=== PATIENT | female | born 1945 | race Caucasian/White ===

== ENCOUNTER 2023-01-04 10:55 | Inpatient (IN) | payer MEDICARE ==
[~2023-01-04] VITALS: Ht 152.4 cm; Wt 45.4 kg
[2023-01-04] MEDS ORDERED: IBUP-2314 PO (11:08)
[2023-01-04] MEDS ORDERED: DONE5TAB34 PO (11:08)
[2023-01-04] MEDS ORDERED: LORA0.5T48 PO (11:08)
[2023-01-04 11:38] LABS: BASOPHILS # (AUTO) 0.1 K/UL (0.0-0.2); BASOPHILS % (AUTO) 0.5 % (0.0-2.0); EOSINOPHILS # (AUTO) 0.1 K/uL (0.0-0.7); EOSINOPHILS % (AUTO) 0.8 % (0.0-7.0); HEMATOCRIT 38.3 % (31.2-41.9); HEMOGLOBIN 12.9 g/dL (10.9-14.3); LYMPHOCYTES # (AUTO) 0.3 K/uL (0.8-4.8); LYMPHOCYTES % (AUTO) 2.9 % (20.5-51.5); MEAN CORPUSCULAR HEMOGLOBIN 31.6 uug (24.7-32.8); MEAN CORPUSCULAR HGB CONC 34 g/dL (32.3-35.6); MONOCYTES % (AUTO) 9.6 % (0.0-11.0); NEUTROPHILS # (AUTO) 9.2 K/uL (1.8-8.9); NEUTROPHILS % (AUTO) 86.2 % (38.5-71.5); PLATELET COUNT (AUTO) 194 K/uL (179-408); RED BLOOD CELL COUNT(AUTO) 4.07 MIL/uL (3.63-4.92); RED CELL DISTRIBUTION WIDTH 14.3 % (12.3-17.7); WHITE BLOOD COUNT (AUTO) 10.7 K/uL (3.8-11.8)
[2023-01-04 11:46] LABS: CARBON DIOXIDE 27 mmol/L (21-32); CHLORIDE 102 mmol/L (98-107); CREATININE 0.9 mg/dL (0.6-1.3); GLUCOSE 113 mg/dL (74-106); POTASSIUM 4.1 mmol/L (3.5-5.1); SODIUM SERUM 139 mmol/L (136-145); UREA NITROGEN, BLOOD 14 mg/dL (7-18)
[2023-01-04 11:47] LABS: DIFFERENTIAL COMMENT 1
[2023-01-04 11:55] LABS: ALANINE AMINOTRANSFERASE 17 U/L (14-59); ALBUMIN 3.5 g/dL (3.4-5.0); ALKALINE PHOSPHATASE 97 U/L (50-136); ASPARTATE AMINOTRANSFERASE 12 U/L (15-37); BILIRUBIN,DIRECT 0.1 mg/dL (0.0-0.2); BILIRUBIN,TOTAL 0.4 mg/dL (0.2-1.0); TOTAL PROTEIN, SERUM 7.3 g/dL (6.4-8.2)
[2023-01-04 11:56] LABS: ACETAMINOPHEN < 2.0 ug/mL (10-30)
[2023-01-04 12:20] LABS: ETHANOL < 3 MG/DL (0-10)
[2023-01-04 12:46] LABS: AMMONIA < 10 umol/L (11-32)
[2023-01-04 13:14] LABS: *BILIRUBIN,URIN NEGATIVE (NEGATIVE); *BLOOD, URINE 1+ (NEGATIVE); *CLARITY,URINE CLEAR (CLEAR); *COLOR,URINE YELLOW (YELLOW); *KETONES,URINE TRACE (NEGATIVE); *PROTEIN,URINE TRACE (NEGATIVE); LEUKOCYTE ESTERASE ,URINE NEGATIVE (NEGATIVE); NITRITE, URINE NEGATIVE (NEGATIVE); UGLUCOSE NEGATIVE (NEGATIVE)
[2023-01-04 13:48] LABS: LYMPHOCYTES % (MANUAL) 4 % (20-40); MONOCYTES % (MANUAL) 9 % (2-10); NEUTROPHILS % (MANUAL) 87 % (42-75); PLATELET ESTIMATE ADEQUATE
[2023-01-04 13:49] LABS: ANISOCYTOSIS 1+
[2023-01-04 14:01] LABS: BACTERIA,URINE FEW /HPF (NONE SEEN); SQUAMOUS EPITHELIAL CELL,UR FEW /HPF (NONE SEEN); WBC,URINE 0-3 /HPF (0-3)
[2023-01-04 14:05] LABS: *AMPHETAMINE, URINE NEGATIVE (NEGATIVE); *BARBITURATE, URINE NEGATIVE (NEGATIVE); *BENZODIAZEPINE, URINE NEGATIVE (NEGATIVE); *CANNABINOID, URINE NEGATIVE (NEGATIVE); *COCCAINE, URINE NEGATIVE (NEGATIVE); *OPIATE, URINE NEGATIVE (NEGATIVE); *PHENCYCLIDINE SCREEN,URINE NEGATIVE (NEGATIVE); FENTANYL, URINE NEGATIVE (NEGATIVE)
[2023-01-04 17:58] VITALS: BP 121/47; TEMP 99.2; O2SAT 98
[2023-01-04] MEDS ORDERED: ONDANSETRON 4 MG/2 ML VIAL IV PRN (18:30)
[2023-01-04] MEDS ORDERED: TEMAZEPAM 15 MG CAPSULE PO PRN (18:30)
[2023-01-04] MEDS ORDERED: ACETAMINOPHEN 325 MG TABLET PO PRN (18:30)
[2023-01-04] MEDS ORDERED: PIPERACILLIN SODIUM/TAZOBACTAM 3.375 G in IV DEXTROSE 5% 50 ML IV SCH (18:30)
[2023-01-04 20:00] VITALS: BP 120/42; TEMP 98.6; O2SAT 96
[2023-01-04] MEDS: IV D5/ 0.9% NACL 1,000 ML IV PRN (20:09)
[2023-01-04] MEDS ORDERED: MEROPENEM 1GM/NS 100ML IVPB **ER PYXIS ONLY IV ONE (21:42)
[2023-01-04] MEDS ORDERED: PIPERACILLIN SODIUM/TAZOBACTAM 3.375 G in IV DEXTROSE 5% 100 ML IV SCH (22:00)
[2023-01-04] MEDS: MEROPENEM 1 G in IV NORMAL SALINE 100 ML IV ONE ×2 (22:01→22:13)
[2023-01-05] VITALS: BP 111/40; TEMP 97.6; O2SAT 99
[2023-01-05 04:00] VITALS: BP 125/45; TEMP 97.8; O2SAT 100
[2023-01-05] MEDS: PANTOPRAZOLE SODIUM 40 MG TABLET.DR PO SCH (06:17)
[2023-01-05 07:04] LABS: BASOPHILS # (AUTO) 0.1 K/UL (0.0-0.2); EOSINOPHILS % (AUTO) 0.1 % (0.0-7.0); HEMATOCRIT 36.3 % (31.2-41.9); HEMOGLOBIN 12.2 g/dL (10.9-14.3); LYMPHOCYTES # (AUTO) 0.9 K/uL (0.8-4.8); LYMPHOCYTES % (AUTO) 14.3 % (20.5-51.5); MEAN CORPUSCULAR HEMOGLOBIN 31.4 uug (24.7-32.8); MEAN CORPUSCULAR HGB CONC 34 g/dL (32.3-35.6); MEAN CORPUSCULAR VOLUME 93.4 fL (75.5-95.3); MONOCYTES # (AUTO) 1.1 K/uL (0.1-1.30); MONOCYTES % (AUTO) 17.3 % (0.0-11.0); NEUTROPHILS # (AUTO) 4.4 K/uL (1.8-8.9); NEUTROPHILS % (AUTO) 67.3 % (38.5-71.5); PLATELET COUNT (AUTO) 146 K/uL (179-408); RED BLOOD CELL COUNT(AUTO) 3.88 MIL/uL (3.63-4.92); RED CELL DISTRIBUTION WIDTH 14.1 % (12.3-17.7); WHITE BLOOD COUNT (AUTO) 6.5 K/uL (3.8-11.8)
[2023-01-05 07:53] LABS: DIFFERENTIAL COMMENT 1
[2023-01-05 08:08] LABS: ALBUMIN 2.9 g/dL (3.4-5.0); BILIRUBIN,TOTAL 0.3 mg/dL (0.2-1.0); CALCIUM 8.2 mg/dL (8.5-10.1); CREATININE 0.8 mg/dL (0.6-1.3); MAGNESIUM 1.9 mg/dL (1.8-2.4); PHOSPHOROUS 3.8 mg/dL (2.5-4.9); POTASSIUM 3.7 mmol/L (3.5-5.1); TOTAL PROTEIN, SERUM 6.1 g/dL (6.4-8.2)
[2023-01-05] MEDS ORDERED: MEROPENEM 1 G in IV NORMAL SALINE 100 ML IV SCH (09:00)
[2023-01-05] MEDS: DONEPEZIL 5 MG TABLET PO SCH (09:11)
[2023-01-05] MEDS: MEROPENEM 1 G in IV NORMAL SALINE 100 ML IV SCH ×2 (10:25→22:15)
[2023-01-05 11:18] VITALS: BP 118/37; TEMP 97.6; O2SAT 95
[2023-01-05 11:49] LABS: LYMPHOCYTES % (MANUAL) 15 % (20-40); MONOCYTES % (MANUAL) 17 % (2-10); NEUTROPHILS % (MANUAL) 68 % (42-75)
[2023-01-05 11:50] LABS: ANISOCYTOSIS 1+; PLATELET ESTIMATE ADEQUATE
[2023-01-05 15:43] VITALS: BP 142/64; TEMP 98.2; O2SAT 96
[2023-01-05] MEDS: IV D5/ 0.9% NACL 1,000 ML IV PRN (19:59)
[2023-01-05 20:00] VITALS: BP 138/56; TEMP 99; O2SAT 97
[2023-01-06 05:06] VITALS: BP 113/57; TEMP 98.8; O2SAT 99
[2023-01-06] MEDS: PANTOPRAZOLE SODIUM 40 MG TABLET.DR PO SCH (06:49)
[2023-01-06] MEDS: DOCUSATE SODIUM 100 MG CAPSULE PO SCH ×2 (08:38→20:35)
[2023-01-06] MEDS: DONEPEZIL 5 MG TABLET PO SCH (08:39)
[2023-01-06] MEDS ORDERED: BISACODYL 5 MG TABLET.DR PO ONE (09:00)
[2023-01-06] MEDS: MEROPENEM 1 G in IV NORMAL SALINE 100 ML IV SCH (10:28)
[2023-01-06 11:45] VITALS: BP 117/80; TEMP 93; O2SAT 97
[2023-01-06] MEDS: levoFLOXacin 500 MG TABLET PO SCH (15:23)
[2023-01-06 16:16] VITALS: TEMP 98.6; O2SAT 98
[2023-01-06 20:00] VITALS: BP 118/79; TEMP 98; O2SAT 97
[2023-01-07 04:00] VITALS: BP 125/84; TEMP 98.2; O2SAT 98
[2023-01-07] MEDS: PANTOPRAZOLE SODIUM 40 MG TABLET.DR PO SCH (06:33)
[2023-01-07 06:40] LABS: EOSINOPHILS % (AUTO) 0.9 % (0.0-7.0); HEMATOCRIT 37.2 % (31.2-41.9); HEMOGLOBIN 12.6 g/dL (10.9-14.3); LYMPHOCYTES # (AUTO) 1.1 K/uL (0.8-4.8); MEAN CORPUSCULAR HEMOGLOBIN 31.4 uug (24.7-32.8); MEAN CORPUSCULAR HGB CONC 34 g/dL (32.3-35.6); MEAN CORPUSCULAR VOLUME 92.3 fL (75.5-95.3); MONOCYTES # (AUTO) 0.6 K/uL (0.1-1.30); MONOCYTES % (AUTO) 21.3 % (0.0-11.0); NEUTROPHILS # (AUTO) 1.1 K/uL (1.8-8.9); NEUTROPHILS % (AUTO) 37.8 % (38.5-71.5); PLATELET COUNT (AUTO) 156 K/uL (179-408); RED BLOOD CELL COUNT(AUTO) 4.03 MIL/uL (3.63-4.92); RED CELL DISTRIBUTION WIDTH 14.1 % (12.3-17.7); WHITE BLOOD COUNT (AUTO) 2.8 K/uL (3.8-11.8)
[2023-01-07 06:53] LABS: DIFFERENTIAL COMMENT 1
[2023-01-07 06:55] LABS: LYMPHOCYTES % (MANUAL) 0 % (20-40); NEUTROPHILS % (MANUAL) 0 % (42-75)
[2023-01-07 06:56] LABS: CALCIUM 8.3 mg/dL (8.5-10.1); CARBON DIOXIDE 27 mmol/L (21-32); CHLORIDE 105 mmol/L (98-107); CREATININE 0.7 mg/dL (0.6-1.3); GLUCOSE 98 mg/dL (74-106); MAGNESIUM 1.7 mg/dL (1.8-2.4); PHOSPHOROUS 3.6 mg/dL (2.5-4.9); POTASSIUM 3.5 mmol/L (3.5-5.1); SODIUM SERUM 139 mmol/L (136-145); UREA NITROGEN, BLOOD 9 mg/dL (7-18)
[2023-01-07] MEDS: DONEPEZIL 5 MG TABLET PO SCH (08:22)
[2023-01-07] MEDS: DOCUSATE SODIUM 100 MG CAPSULE PO SCH ×2 (08:22→21:06)
[2023-01-07] MEDS: levoFLOXacin 500 MG TABLET PO SCH (08:22)
[2023-01-07] MEDS ORDERED: MAGNESIUM SULFATE/D5W 100 ML IV SCH (08:45)
[2023-01-07] MEDS ORDERED: POTASSIUM CHLORIDE 20 MEQ TAB.PRT.SR PO ONE (08:45)
[2023-01-07] MEDS ORDERED: MAGNESIUM OXIDE 400 MG TABLET PO ONE (10:15)
[2023-01-07 11:20] VITALS: BP 112/45; TEMP 98.3; O2SAT 97
[2023-01-07] MEDS ORDERED: MULT-969 PO (12:28)
[2023-01-07] MEDS ORDERED: LEVO500T90 PO (12:28)
[2023-01-07 16:04] VITALS: BP 127/48; TEMP 97.9; O2SAT 98
[2023-01-07 20:15] VITALS: BP 110/46; TEMP 98.1; O2SAT 96
[2023-01-07] MEDS: ENOXAPARIN SODIUM 40 MG/0.4 ML DISP.SYRIN SQ SCH (21:07)
[2023-01-08 04:16] VITALS: BP 113/41; TEMP 98.1; O2SAT 97
[2023-01-08] MEDS: PANTOPRAZOLE SODIUM 40 MG TABLET.DR PO SCH (07:06)
[2023-01-08 07:22] LABS: BASOPHILS % (AUTO) 0.8 % (0.0-2.0); EOSINOPHILS % (AUTO) 0.8 % (0.0-7.0); HEMATOCRIT 34.9 % (31.2-41.9); HEMOGLOBIN 11.9 g/dL (10.9-14.3); LYMPHOCYTES # (AUTO) 1.6 K/uL (0.8-4.8); LYMPHOCYTES % (AUTO) 45.3 % (20.5-51.5); MEAN CORPUSCULAR HEMOGLOBIN 31.3 uug (24.7-32.8); MEAN CORPUSCULAR HGB CONC 34 g/dL (32.3-35.6); MONOCYTES # (AUTO) 0.5 K/uL (0.1-1.30); MONOCYTES % (AUTO) 14.2 % (0.0-11.0); NEUTROPHILS # (AUTO) 1.4 K/uL (1.8-8.9); NEUTROPHILS % (AUTO) 38.9 % (38.5-71.5); PLATELET COUNT (AUTO) 159 K/uL (179-408); RED BLOOD CELL COUNT(AUTO) 3.79 MIL/uL (3.63-4.92); WHITE BLOOD COUNT (AUTO) 3.6 K/uL (3.8-11.8)
[2023-01-08 07:33] LABS: DIFFERENTIAL COMMENT 1
[2023-01-08 07:45] LABS: ALANINE AMINOTRANSFERASE 20 U/L (14-59); ALBUMIN 2.6 g/dL (3.4-5.0); ALKALINE PHOSPHATASE 65 U/L (50-136); ASPARTATE AMINOTRANSFERASE 21 U/L (15-37); BILIRUBIN,TOTAL 0.2 mg/dL (0.2-1.0); CALCIUM 8.1 mg/dL (8.5-10.1); CARBON DIOXIDE 26 mmol/L (21-32); CHLORIDE 104 mmol/L (98-107); CREATININE 0.8 mg/dL (0.6-1.3); FERRITIN 75 ng/mL (8-252); GLUCOSE 96 mg/dL (74-106); MAGNESIUM 1.9 mg/dL (1.8-2.4); PHOSPHOROUS 3.4 mg/dL (2.5-4.9); POTASSIUM 3.5 mmol/L (3.5-5.1); SODIUM SERUM 139 mmol/L (136-145); TOTAL PROTEIN, SERUM 5.6 g/dL (6.4-8.2); UREA NITROGEN, BLOOD 15 mg/dL (7-18)
[2023-01-08] MEDS: ASCORBIC ACID 500 MG TABLET PO SCH (09:22)
[2023-01-08] MEDS: levoFLOXacin 500 MG TABLET PO SCH (09:23)
[2023-01-08] MEDS: ZINC SULFATE 220 MG CAPSULE PO SCH (09:23)
[2023-01-08] MEDS: DONEPEZIL 5 MG TABLET PO SCH (09:23)
[2023-01-08] MEDS: DOCUSATE SODIUM 100 MG CAPSULE PO SCH ×2 (09:23→20:27)
[2023-01-08 11:33] VITALS: BP 127/46; TEMP 98.5; O2SAT 97
[2023-01-08 15:44] VITALS: BP 115/40; TEMP 98.2; O2SAT 95
[2023-01-08 20:00] VITALS: BP 126/45; TEMP 97.7; O2SAT 97
[2023-01-08] MEDS: NICOTINE 14 MG/24HR PATCH TD SCH (20:26)
[2023-01-08] MEDS: ENOXAPARIN SODIUM 40 MG/0.4 ML DISP.SYRIN SQ SCH (20:28)
[2023-01-09 04:00] VITALS: BP 110/42; TEMP 97.8; O2SAT 96
[2023-01-09] MEDS: PANTOPRAZOLE SODIUM 40 MG TABLET.DR PO SCH (06:04)
[2023-01-09 08:00] VITALS: BP 112/54; TEMP 98; O2SAT 96
[2023-01-09] MEDS: DOCUSATE SODIUM 100 MG CAPSULE PO SCH ×2 (08:27→20:40)
[2023-01-09] MEDS: DONEPEZIL 5 MG TABLET PO SCH (08:27)
[2023-01-09] MEDS: ZINC SULFATE 220 MG CAPSULE PO SCH (08:27)
[2023-01-09] MEDS: NICOTINE 14 MG/24HR PATCH TD SCH (08:27)
[2023-01-09] MEDS: ASCORBIC ACID 500 MG TABLET PO SCH (08:27)
[2023-01-09 12:00] VITALS: BP 135/49; TEMP 98.1; O2SAT 97
[2023-01-09 16:00] VITALS: BP 135/48; TEMP 98.7; O2SAT 97
[2023-01-09] MEDS: ENSURE ENLIVE (VAN) 240 ML LIQUID PO SCH (18:11)
[2023-01-09] MEDS: ENOXAPARIN SODIUM 40 MG/0.4 ML DISP.SYRIN SQ SCH (20:41)
[2023-01-10 05:43] VITALS: BP 148/68; TEMP 99; O2SAT 100
[2023-01-10] MEDS: PANTOPRAZOLE SODIUM 40 MG TABLET.DR PO SCH (06:04)
[2023-01-10 06:24] LABS: BASOPHILS % (AUTO) 1.1 % (0.0-2.0); EOSINOPHILS % (AUTO) 1.1 % (0.0-7.0); HEMATOCRIT 36.8 % (31.2-41.9); HEMOGLOBIN 12.2 g/dL (10.9-14.3); LYMPHOCYTES # (AUTO) 1.5 K/uL (0.8-4.8); LYMPHOCYTES % (AUTO) 38.8 % (20.5-51.5); MEAN CORPUSCULAR HEMOGLOBIN 30.9 uug (24.7-32.8); MEAN CORPUSCULAR HGB CONC 33 g/dL (32.3-35.6); MEAN CORPUSCULAR VOLUME 92.9 fL (75.5-95.3); MONOCYTES # (AUTO) 0.6 K/uL (0.1-1.30); NEUTROPHILS # (AUTO) 1.7 K/uL (1.8-8.9); PLATELET COUNT (AUTO) 156 K/uL (179-408); RED BLOOD CELL COUNT(AUTO) 3.96 MIL/uL (3.63-4.92)
[2023-01-10 06:39] LABS: DIFFERENTIAL COMMENT 1
[2023-01-10 06:45] LABS: LYMPHOCYTES % (MANUAL) 0 % (20-40); NEUTROPHILS % (MANUAL) 0 % (42-75)
[2023-01-10 06:55] LABS: CALCIUM 8.1 mg/dL (8.5-10.1); CARBON DIOXIDE 31 mmol/L (21-32); CHLORIDE 105 mmol/L (98-107); CREATININE 0.8 mg/dL (0.6-1.3); GLUCOSE 95 mg/dL (74-106); POTASSIUM 3.2 mmol/L (3.5-5.1); SODIUM SERUM 142 mmol/L (136-145); UREA NITROGEN, BLOOD 12 mg/dL (7-18)
[2023-01-10] MEDS: ENSURE ENLIVE (VAN) 240 ML LIQUID PO SCH ×2 (08:00→17:00)
[2023-01-10] MEDS: NICOTINE 14 MG/24HR PATCH TD SCH (09:00)
[2023-01-10] MEDS: DONEPEZIL 5 MG TABLET PO SCH (09:52)
[2023-01-10] MEDS: ASCORBIC ACID 500 MG TABLET PO SCH (09:52)
[2023-01-10] MEDS: ZINC SULFATE 220 MG CAPSULE PO SCH (09:52)
[2023-01-10] MEDS: DOCUSATE SODIUM 100 MG CAPSULE PO SCH ×3 (09:52→21:24)
[2023-01-10 11:23] VITALS: BP 123/46; TEMP 98.1; O2SAT 96
[2023-01-10] MEDS ORDERED: POTASSIUM CHLORIDE 20 MEQ TAB.PRT.SR PO ONE (13:00)
[2023-01-10 16:06] VITALS: BP 130/46; TEMP 98; O2SAT 95
[2023-01-10 20:00] VITALS: BP 121/51; TEMP 98; O2SAT 99
[2023-01-10] MEDS: ENOXAPARIN SODIUM 40 MG/0.4 ML DISP.SYRIN SQ SCH (21:23)
[2023-01-11 04:00] VITALS: BP 110/55; TEMP 98.1; O2SAT 98
[2023-01-11] MEDS: PANTOPRAZOLE SODIUM 40 MG TABLET.DR PO SCH (06:37)
[2023-01-11 07:17] LABS: BASOPHILS % (AUTO) 0.6 % (0.0-2.0); EOSINOPHILS # (AUTO) 0.1 K/uL (0.0-0.7); EOSINOPHILS % (AUTO) 1.3 % (0.0-7.0); HEMATOCRIT 36.7 % (31.2-41.9); HEMOGLOBIN 12.3 g/dL (10.9-14.3); LYMPHOCYTES # (AUTO) 1.2 K/uL (0.8-4.8); MEAN CORPUSCULAR HEMOGLOBIN 30.9 uug (24.7-32.8); MEAN CORPUSCULAR HGB CONC 34 g/dL (32.3-35.6); MEAN CORPUSCULAR VOLUME 91.9 fL (75.5-95.3); MONOCYTES # (AUTO) 0.8 K/uL (0.1-1.30); MONOCYTES % (AUTO) 16.4 % (0.0-11.0); NEUTROPHILS # (AUTO) 2.7 K/uL (1.8-8.9); NEUTROPHILS % (AUTO) 55.7 % (38.5-71.5); PLATELET COUNT (AUTO) 156 K/uL (179-408); RED BLOOD CELL COUNT(AUTO) 3.99 MIL/uL (3.63-4.92); RED CELL DISTRIBUTION WIDTH 13.9 % (12.3-17.7); WHITE BLOOD COUNT (AUTO) 4.8 K/uL (3.8-11.8)
[2023-01-11 07:24] LABS: CALCIUM 8.6 mg/dL (8.5-10.1); CARBON DIOXIDE 29 mmol/L (21-32); CHLORIDE 104 mmol/L (98-107); CREATININE 0.6 mg/dL (0.6-1.3); GLUCOSE 95 mg/dL (74-106); POTASSIUM 3.5 mmol/L (3.5-5.1); SODIUM SERUM 138 mmol/L (136-145); UREA NITROGEN, BLOOD 16 mg/dL (7-18)
[2023-01-11 07:28] LABS: DIFFERENTIAL COMMENT 1
[2023-01-11] MEDS: ENSURE ENLIVE (VAN) 240 ML LIQUID PO SCH ×2 (08:00→17:57)
[2023-01-11] MEDS: DOCUSATE SODIUM 100 MG CAPSULE PO SCH ×2 (11:06→21:08)
[2023-01-11] MEDS: ZINC SULFATE 220 MG CAPSULE PO SCH (11:06)
[2023-01-11] MEDS: NICOTINE 14 MG/24HR PATCH TD SCH (11:06)
[2023-01-11] MEDS: ASCORBIC ACID 500 MG TABLET PO SCH (11:06)
[2023-01-11] MEDS: DONEPEZIL 5 MG TABLET PO SCH (11:07)
[2023-01-11 11:48] LABS: BAND % (MANUAL) 0 % (0-10); EOSINOPHILS % (MANUAL) 1 % (0-8); LYMPHOCYTES % (MANUAL) 26 % (20-40); MONOCYTES % (MANUAL) 18 % (2-10); NEUTROPHILS % (MANUAL) 55 % (42-75)
[2023-01-11 11:49] LABS: ANISOCYTOSIS 1+; PLATELET ESTIMATE DECREASED
[2023-01-11 11:50] VITALS: BP 122/47; TEMP 98.3; O2SAT 97
[2023-01-11] MEDS ORDERED: DOCU-141 PO (12:32)
[2023-01-11] MEDS ORDERED: ASCO500T21 PO (12:32)
[2023-01-11] MEDS ORDERED: ZINC1CAP3 PO (12:32)
[2023-01-11] MEDS ORDERED: PANT40TA49 PO (12:32)
[2023-01-11] MEDS ORDERED: NICO-671 TD (12:32)
[2023-01-11 15:42] VITALS: BP 111/39; TEMP 98.9; O2SAT 98
[2023-01-11 20:38] VITALS: BP 123/41; TEMP 98.8; O2SAT 96
[2023-01-11] MEDS: ENOXAPARIN SODIUM 40 MG/0.4 ML DISP.SYRIN SQ SCH (21:08)
[2023-01-12 04:46] VITALS: BP 127/45; TEMP 98.8; O2SAT 98
[2023-01-12] MEDS: PANTOPRAZOLE SODIUM 40 MG TABLET.DR PO SCH (06:32)
[2023-01-12 07:12] LABS: BASOPHILS % (AUTO) 0.8 % (0.0-2.0); EOSINOPHILS # (AUTO) 0.1 K/uL (0.0-0.7); EOSINOPHILS % (AUTO) 2.9 % (0.0-7.0); HEMATOCRIT 36.5 % (31.2-41.9); HEMOGLOBIN 12.4 g/dL (10.9-14.3); LYMPHOCYTES # (AUTO) 1.6 K/uL (0.8-4.8); LYMPHOCYTES % (AUTO) 32.3 % (20.5-51.5); MEAN CORPUSCULAR HEMOGLOBIN 31.3 uug (24.7-32.8); MEAN CORPUSCULAR HGB CONC 34 g/dL (32.3-35.6); MEAN CORPUSCULAR VOLUME 92.3 fL (75.5-95.3); MONOCYTES # (AUTO) 0.7 K/uL (0.1-1.30); MONOCYTES % (AUTO) 14.3 % (0.0-11.0); NEUTROPHILS # (AUTO) 2.4 K/uL (1.8-8.9); NEUTROPHILS % (AUTO) 49.7 % (38.5-71.5); PLATELET COUNT (AUTO) 173 K/uL (179-408); RED BLOOD CELL COUNT(AUTO) 3.95 MIL/uL (3.63-4.92); RED CELL DISTRIBUTION WIDTH 14.1 % (12.3-17.7); WHITE BLOOD COUNT (AUTO) 4.8 K/uL (3.8-11.8)
[2023-01-12 07:19] LABS: CALCIUM 8.7 mg/dL (8.5-10.1); CREATININE 0.6 mg/dL (0.6-1.3)
[2023-01-12 07:24] LABS: DIFFERENTIAL COMMENT 1
[2023-01-12] MEDS: ENSURE ENLIVE (VAN) 240 ML LIQUID PO SCH ×2 (08:00→17:00)
[2023-01-12] MEDS: ASCORBIC ACID 500 MG TABLET PO SCH (09:39)
[2023-01-12] MEDS: NICOTINE 14 MG/24HR PATCH TD SCH (09:39)
[2023-01-12] MEDS: ZINC SULFATE 220 MG CAPSULE PO SCH (09:39)
[2023-01-12] MEDS: DOCUSATE SODIUM 100 MG CAPSULE PO SCH (09:39)
[2023-01-12] MEDS: DONEPEZIL 5 MG TABLET PO SCH (09:39)
[2023-01-12 11:00] VITALS: BP 118/47; TEMP 98; O2SAT 96
[2023-01-12 15:56] VITALS: BP 122/50; TEMP 98.2; O2SAT 96
== END 2023-01-12 18:00 | DRG 177 ==
LOC: ER 10:55 → TELE3 17:10 → MEDSURG3 01-05 11:38
PROVIDERS: ADMIT Internal Medicine; ATTEND Internal Medicine
DX: U07.1 COVID-19 (principal); G92.8 Other toxic encephalopathy; J12.82 Pneumonia due to coronavirus disease 2019; J15.9 Unspecified bacterial pneumonia; Z68.1 Body mass index [BMI] 19.9 or less, adult; E44.0 Moderate protein-calorie malnutrition; F03.94 Unspecified dementia, unspecified severity, with anxiety; F03.93 Unspecified dementia, unspecified severity, with mood disturbance; R62.7 Adult failure to thrive; Z66 Do not resuscitate; E83.51 Hypocalcemia; E78.5 Hyperlipidemia, unspecified; E88.09 Other disorders of plasma-protein metabolism, not elsewhere classified; F17.210 Nicotine dependence, cigarettes, uncomplicated; I70.0 Atherosclerosis of aorta; Z87.440 Personal history of urinary (tract) infections; Z90.710 Acquired absence of both cervix and uterus; Z88.1 Allergy status to other antibiotic agents; Z88.0 Allergy status to penicillin; R26.89 Other abnormalities of gait and mobility; M19.90 Unspecified osteoarthritis, unspecified site; Z96.659 Presence of unspecified artificial knee joint
CPT/HCPCS: 36415; 70030-TC; 70450; 71045; 72170; 82652; 83605; 83735; 84100; 84443; 84484; 85025; 85730; 87040; 93005; 93307; A4606; A4663; C1758; G0378; G0480; J1650; J2185; J2543; J7042

== ENCOUNTER 2023-02-04 09:38 | Inpatient (IN) | payer MEDICARE ==
[~2023-02-04] VITALS: Ht 160 cm; Wt 45.4 kg
[~2023-02-04 09:38] MED LIST: ASCO500T21 PO; DOCU-141 PO; DONE5TAB34 PO; IBUP-2314 PO; LORA0.5T48 PO; MULT-969 PO; NICO-671 TD; PANT40TA49 PO; ZINC1CAP3 PO
[2023-02-04] MEDS ORDERED: IV NORMAL SALINE 1000 ML BAG IV ONE (10:00)
[2023-02-04] MEDS: IV NORMAL SALINE 500 ML BAG IV ONE ×2 (10:01→10:13)
[2023-02-04 10:24] LABS: BASOPHILS % (AUTO) 0.4 % (0.0-2.0); EOSINOPHILS # (AUTO) 0.3 K/uL (0.0-0.7); EOSINOPHILS % (AUTO) 3.2 % (0.0-7.0); HEMATOCRIT 35.4 % (31.2-41.9); HEMOGLOBIN 11.4 g/dL (10.9-14.3); LYMPHOCYTES # (AUTO) 0.9 K/uL (0.8-4.8); LYMPHOCYTES % (AUTO) 10.2 % (20.5-51.5); MEAN CORPUSCULAR HEMOGLOBIN 30.5 uug (24.7-32.8); MEAN CORPUSCULAR HGB CONC 32 g/dL (32.3-35.6); MEAN CORPUSCULAR VOLUME 95.1 fL (75.5-95.3); MONOCYTES # (AUTO) 0.6 K/uL (0.1-1.30); MONOCYTES % (AUTO) 7.4 % (0.0-11.0); NEUTROPHILS # (AUTO) 6.8 K/uL (1.8-8.9); NEUTROPHILS % (AUTO) 78.8 % (38.5-71.5); PLATELET COUNT (AUTO) 205 K/uL (179-408); RED BLOOD CELL COUNT(AUTO) 3.73 MIL/uL (3.63-4.92); RED CELL DISTRIBUTION WIDTH 14.9 % (12.3-17.7); WHITE BLOOD COUNT (AUTO) 8.7 K/uL (3.8-11.8)
[2023-02-04 10:39] LABS: CALCIUM 8.6 mg/dL (8.5-10.1); CARBON DIOXIDE 25 mmol/L (21-32); CHLORIDE 107 mmol/L (98-107); CREATININE 0.7 mg/dL (0.6-1.3); GLUCOSE 154 mg/dL (74-106); POTASSIUM 4.3 mmol/L (3.5-5.1); SODIUM SERUM 142 mmol/L (136-145); UREA NITROGEN, BLOOD 13 mg/dL (7-18)
[2023-02-04 10:59] LABS: ALANINE AMINOTRANSFERASE 17 U/L (14-59); ALBUMIN 2.9 g/dL (3.4-5.0); ALKALINE PHOSPHATASE 87 U/L (50-136); ASPARTATE AMINOTRANSFERASE 13 U/L (15-37); BILIRUBIN,TOTAL 0.3 mg/dL (0.2-1.0); NT-PRO BNP 89 pg/mL (0-125); TOTAL PROTEIN, SERUM 6.3 g/dL (6.4-8.2)
[2023-02-04 11:09] LABS: *BILIRUBIN,URIN NEGATIVE (NEGATIVE); *BLOOD, URINE NEGATIVE (NEGATIVE); *CLARITY,URINE CLEAR (CLEAR); *COLOR,URINE YELLOW (YELLOW); *KETONES,URINE NEGATIVE (NEGATIVE); *PROTEIN,URINE 1+ (NEGATIVE); *UROBILINOGEN,URINE 0.2 E.U./dl (NORMAL); LEUKOCYTE ESTERASE ,URINE NEGATIVE (NEGATIVE); NITRITE, URINE NEGATIVE (NEGATIVE); UGLUCOSE NEGATIVE (NEGATIVE)
[2023-02-04] MEDS ORDERED: MORPHINE SULFATE 2 MG/1 ML DISP.SYRIN IV PRN (13:30)
[2023-02-04] MEDS ORDERED: ONDANSETRON 4 MG/2 ML VIAL IV PRN (13:30)
[2023-02-04] MEDS ORDERED: REMEDY ESSENTIAL ZINC PASTE 113 GM TP PRN (13:30)
[2023-02-04] MEDS ORDERED: LORAZEPAM 2 MG/1 ML VIAL IV PRN (13:30)
[2023-02-04] MEDS ORDERED: HYDROCODONE/APAP 10-325 MG TABLET PO PRN (13:30)
[2023-02-04] MEDS ORDERED: MAGNESIUM HYDROXIDE 30 ML LIQUID UDC PO PRN (13:30)
[2023-02-04 14:09] LABS: BACTERIA,URINE NONE SEEN /HPF (NONE SEEN); RBC,URINE 0-3 /HPF (0-3); SQUAMOUS EPITHELIAL CELL,UR FEW /HPF (NONE SEEN); WBC,URINE 0-3 /HPF (0-3)
[2023-02-04 22:50] VITALS: BP 114/63; TEMP 98.4; O2SAT 100
[2023-02-05] VITALS (12 sets, daily range): BP systolic 105–131; BP diastolic 40–73; TEMP 98.1–98.8; O2SAT 97–100
[2023-02-05 05:57] LABS: BASOPHILS # (AUTO) 0.1 K/UL (0.0-0.2); BASOPHILS % (AUTO) 0.8 % (0.0-2.0); EOSINOPHILS # (AUTO) 0.3 K/uL (0.0-0.7); EOSINOPHILS % (AUTO) 3.7 % (0.0-7.0); HEMOGLOBIN 11.4 g/dL (10.9-14.3); LYMPHOCYTES # (AUTO) 1.1 K/uL (0.8-4.8); LYMPHOCYTES % (AUTO) 15.3 % (20.5-51.5); MEAN CORPUSCULAR HEMOGLOBIN 30.6 uug (24.7-32.8); MEAN CORPUSCULAR HGB CONC 33 g/dL (32.3-35.6); MEAN CORPUSCULAR VOLUME 93.9 fL (75.5-95.3); MONOCYTES # (AUTO) 0.8 K/uL (0.1-1.30); MONOCYTES % (AUTO) 10.8 % (0.0-11.0); NEUTROPHILS % (AUTO) 69.4 % (38.5-71.5); PLATELET COUNT (AUTO) 202 K/uL (179-408); RED BLOOD CELL COUNT(AUTO) 3.73 MIL/uL (3.63-4.92); WHITE BLOOD COUNT (AUTO) 7.2 K/uL (3.8-11.8)
[2023-02-05] MEDS: PANTOPRAZOLE SODIUM 40 MG TABLET.DR PO SCH (06:13)
[2023-02-05 06:40] LABS: DIFFERENTIAL COMMENT 1
[2023-02-05 06:51] LABS: CALCIUM 8.1 mg/dL (8.5-10.1); CARBON DIOXIDE 26 mmol/L (21-32); CHLORIDE 107 mmol/L (98-107); CHOLESTEROL 202 mg/dL (<200); CREATININE 0.6 mg/dL (0.6-1.3); GLUCOSE 100 mg/dL (74-106); HDL CHOLESTEROL 78 mg/dL (40-60); MAGNESIUM 1.9 mg/dL (1.8-2.4); PHOSPHOROUS 3.5 mg/dL (2.5-4.9); POTASSIUM 4.2 mmol/L (3.5-5.1); SODIUM SERUM 141 mmol/L (136-145); TRIGLYCERIDES 67 MG/DL (30-150); UREA NITROGEN, BLOOD 9 mg/dL (7-18)
[2023-02-05 06:58] LABS: THYROID STIMULATING HORMONE 1.698 mIU/mL (0.358-3.740)
[2023-02-05] MEDS: MULTIVITAMINS,THERAPEUTIC TABLET PO SCH (08:42)
[2023-02-05] MEDS: ASCORBIC ACID 500 MG TABLET PO SCH (08:42)
[2023-02-05] MEDS ORDERED: DONEPEZIL 5 MG TABLET PO SCH (09:00)
[2023-02-05] MEDS: ALBUTEROL SULFATE 1.25 MG/3 ML NEBU NEB SCH ×2 (12:59→20:14)
[2023-02-05] MEDS: IPRATROPIUM BROMIDE 0.5 MG/2.5 ML NEBU NEB SCH ×2 (12:59→20:14)
[2023-02-06] VITALS (26 sets, daily range): BP systolic 87–128; BP diastolic 33–54; TEMP 97.8–98.6; O2SAT 97–100
[2023-02-06] MEDS: ALBUTEROL SULFATE 1.25 MG/3 ML NEBU NEB SCH ×3 (08:17→20:03)
[2023-02-06] MEDS: IPRATROPIUM BROMIDE 0.5 MG/2.5 ML NEBU NEB SCH ×3 (08:17→20:04)
[2023-02-06] MEDS: MULTIVITAMINS,THERAPEUTIC TABLET PO SCH (08:52)
[2023-02-06] MEDS: HYDROCODONE/APAP 10-325 MG TABLET PO PRN (08:52)
[2023-02-06] MEDS: ASCORBIC ACID 500 MG TABLET PO SCH (08:52)
[2023-02-06] MEDS: PANTOPRAZOLE SODIUM 40 MG TABLET.DR PO SCH (08:52)
[2023-02-07] VITALS (8 sets, daily range): BP systolic 93–129; BP diastolic 33–47; TEMP 97.7–98.4; O2SAT 93–100
[2023-02-07] MEDS: PANTOPRAZOLE SODIUM 40 MG TABLET.DR PO SCH (06:36)
[2023-02-07 07:04] LABS: BASOPHILS # (AUTO) 0.1 K/UL (0.0-0.2); BASOPHILS % (AUTO) 1.1 % (0.0-2.0); EOSINOPHILS # (AUTO) 0.3 K/uL (0.0-0.7); EOSINOPHILS % (AUTO) 3.6 % (0.0-7.0); HEMATOCRIT 34.2 % (31.2-41.9); HEMOGLOBIN 11.3 g/dL (10.9-14.3); LYMPHOCYTES # (AUTO) 1.2 K/uL (0.8-4.8); LYMPHOCYTES % (AUTO) 16.2 % (20.5-51.5); MEAN CORPUSCULAR HEMOGLOBIN 30.9 uug (24.7-32.8); MEAN CORPUSCULAR HGB CONC 33 g/dL (32.3-35.6); MEAN CORPUSCULAR VOLUME 93.6 fL (75.5-95.3); MONOCYTES # (AUTO) 0.9 K/uL (0.1-1.30); MONOCYTES % (AUTO) 11.5 % (0.0-11.0); NEUTROPHILS # (AUTO) 5.2 K/uL (1.8-8.9); NEUTROPHILS % (AUTO) 67.6 % (38.5-71.5); PLATELET COUNT (AUTO) 221 K/uL (179-408); RED BLOOD CELL COUNT(AUTO) 3.65 MIL/uL (3.63-4.92); RED CELL DISTRIBUTION WIDTH 14.5 % (12.3-17.7); WHITE BLOOD COUNT (AUTO) 7.7 K/uL (3.8-11.8)
[2023-02-07 07:11] LABS: DIFFERENTIAL COMMENT 1
[2023-02-07 07:14] LABS: CALCIUM 8.4 mg/dL (8.5-10.1); CARBON DIOXIDE 30 mmol/L (21-32); CHLORIDE 104 mmol/L (98-107); CREATININE 0.7 mg/dL (0.6-1.3); GLUCOSE 98 mg/dL (74-106); MAGNESIUM 1.9 mg/dL (1.8-2.4); PHOSPHOROUS 3.8 mg/dL (2.5-4.9); POTASSIUM 4.2 mmol/L (3.5-5.1); SODIUM SERUM 141 mmol/L (136-145); UREA NITROGEN, BLOOD 21 mg/dL (7-18)
[2023-02-07] MEDS: ALBUTEROL SULFATE 1.25 MG/3 ML NEBU NEB SCH ×3 (07:35→19:59)
[2023-02-07] MEDS: IPRATROPIUM BROMIDE 0.5 MG/2.5 ML NEBU NEB SCH ×3 (07:35→19:59)
[2023-02-07] MEDS: MULTIVITAMINS,THERAPEUTIC TABLET PO SCH (08:16)
[2023-02-07] MEDS: ASCORBIC ACID 500 MG TABLET PO SCH (08:16)
[2023-02-07] MEDS: ACETAMINOPHEN 325 MG TABLET PO PRN (20:33)
[2023-02-08] VITALS (11 sets, daily range): BP systolic 90–120; BP diastolic 34–54; TEMP 97.5–98.7; O2SAT 92–99
[2023-02-08] MEDS: PANTOPRAZOLE SODIUM 40 MG TABLET.DR PO SCH (06:03)
[2023-02-08] MEDS: IPRATROPIUM BROMIDE 0.5 MG/2.5 ML NEBU NEB SCH ×3 (06:35→19:53)
[2023-02-08] MEDS: ALBUTEROL SULFATE 1.25 MG/3 ML NEBU NEB SCH ×3 (06:36→19:53)
[2023-02-08 06:47] LABS: BASOPHILS # (AUTO) 0.1 K/UL (0.0-0.2); EOSINOPHILS # (AUTO) 0.4 K/uL (0.0-0.7); EOSINOPHILS % (AUTO) 5.1 % (0.0-7.0); HEMATOCRIT 33.7 % (31.2-41.9); HEMOGLOBIN 11.1 g/dL (10.9-14.3); LYMPHOCYTES # (AUTO) 1.1 K/uL (0.8-4.8); LYMPHOCYTES % (AUTO) 15.8 % (20.5-51.5); MEAN CORPUSCULAR HEMOGLOBIN 30.4 uug (24.7-32.8); MEAN CORPUSCULAR HGB CONC 33 g/dL (32.3-35.6); MEAN CORPUSCULAR VOLUME 92.9 fL (75.5-95.3); MONOCYTES % (AUTO) 13.8 % (0.0-11.0); NEUTROPHILS # (AUTO) 4.5 K/uL (1.8-8.9); NEUTROPHILS % (AUTO) 64.3 % (38.5-71.5); PLATELET COUNT (AUTO) 213 K/uL (179-408); RED BLOOD CELL COUNT(AUTO) 3.63 MIL/uL (3.63-4.92); RED CELL DISTRIBUTION WIDTH 14.5 % (12.3-17.7); WHITE BLOOD COUNT (AUTO) 7.1 K/uL (3.8-11.8)
[2023-02-08 06:59] LABS: CALCIUM 8.4 mg/dL (8.5-10.1); CARBON DIOXIDE 30 mmol/L (21-32); CHLORIDE 104 mmol/L (98-107); CREATININE 0.7 mg/dL (0.6-1.3); GLUCOSE 112 mg/dL (74-106); POTASSIUM 3.8 mmol/L (3.5-5.1); SODIUM SERUM 141 mmol/L (136-145); UREA NITROGEN, BLOOD 21 mg/dL (7-18)
[2023-02-08 07:06] LABS: DIFFERENTIAL COMMENT 1
[2023-02-08] MEDS: ASCORBIC ACID 500 MG TABLET PO SCH (08:52)
[2023-02-08] MEDS: HYDROCODONE/APAP 10-325 MG TABLET PO PRN (08:52)
[2023-02-08] MEDS: MULTIVITAMINS,THERAPEUTIC TABLET PO SCH (08:52)
[2023-02-09] VITALS (13 sets, daily range): BP systolic 98–141; BP diastolic 35–90; TEMP 98–98.7; O2SAT 94–100
[2023-02-09] MEDS: PANTOPRAZOLE SODIUM 40 MG TABLET.DR PO SCH (06:53)
[2023-02-09] MEDS: IPRATROPIUM BROMIDE 0.5 MG/2.5 ML NEBU NEB SCH ×3 (08:45→21:39)
[2023-02-09] MEDS: ALBUTEROL SULFATE 1.25 MG/3 ML NEBU NEB SCH ×3 (08:45→21:39)
[2023-02-09] MEDS: ASCORBIC ACID 500 MG TABLET PO SCH (09:53)
[2023-02-09] MEDS: MULTIVITAMINS,THERAPEUTIC TABLET PO SCH (09:53)
[2023-02-09] MEDS: ACETAMINOPHEN 325 MG TABLET PO PRN (10:16)
[2023-02-10] VITALS (14 sets, daily range): BP systolic 115–133; BP diastolic 38–61; TEMP 98.2–99.2; O2SAT 93–99
[2023-02-10] MEDS: PANTOPRAZOLE SODIUM 40 MG TABLET.DR PO SCH (06:37)
[2023-02-10] MEDS: IPRATROPIUM BROMIDE 0.5 MG/2.5 ML NEBU NEB SCH ×3 (07:31→21:32)
[2023-02-10] MEDS: ALBUTEROL SULFATE 1.25 MG/3 ML NEBU NEB SCH ×3 (07:31→21:32)
[2023-02-10] MEDS: MULTIVITAMINS,THERAPEUTIC TABLET PO SCH (09:58)
[2023-02-10] MEDS: ASCORBIC ACID 500 MG TABLET PO SCH (09:58)
[2023-02-11] VITALS (14 sets, daily range): BP systolic 90–140; BP diastolic 39–58; TEMP 97.6–98.8; O2SAT 94–99
[2023-02-11] MEDS: PANTOPRAZOLE SODIUM 40 MG TABLET.DR PO SCH (06:43)
[2023-02-11] MEDS: IPRATROPIUM BROMIDE 0.5 MG/2.5 ML NEBU NEB SCH ×3 (07:52→21:54)
[2023-02-11] MEDS: ALBUTEROL SULFATE 1.25 MG/3 ML NEBU NEB SCH ×3 (07:52→21:54)
[2023-02-11] MEDS: ASCORBIC ACID 500 MG TABLET PO SCH (08:57)
[2023-02-11] MEDS: MULTIVITAMINS,THERAPEUTIC TABLET PO SCH (08:58)
[2023-02-12 04:00] VITALS: BP 108/35; TEMP 98.9; O2SAT 100
[2023-02-12] MEDS: PANTOPRAZOLE SODIUM 40 MG TABLET.DR PO SCH (06:23)
[2023-02-12] MEDS: IPRATROPIUM BROMIDE 0.5 MG/2.5 ML NEBU NEB SCH ×2 (07:35→13:30)
[2023-02-12] MEDS: ALBUTEROL SULFATE 1.25 MG/3 ML NEBU NEB SCH ×2 (07:35→13:30)
[2023-02-12 08:31] VITALS: O2SAT 94
[2023-02-12 08:41] VITALS: O2SAT 99
[2023-02-12] MEDS: MULTIVITAMINS,THERAPEUTIC TABLET PO SCH (09:06)
[2023-02-12] MEDS: ASCORBIC ACID 500 MG TABLET PO SCH (09:06)
[2023-02-12 11:45] VITALS: BP 109/39; TEMP 97.6; O2SAT 98
[2023-02-12 13:40] VITALS: O2SAT 99
== END 2023-02-12 14:00 | DRG 200 ==
LOC: ER 09:42 → TRANSITION 15:18 → MEDSURG3 20:28 → TELE3 02-05 17:40 → CCU 02-05 19:05 → TELE3 02-07 00:42 → MEDSURG3 02-11 16:29
PROVIDERS: ADMIT Nurse Practitioner Acute Care; ATTEND Nurse Practitioner Acute Care
PROC: 0W9B30Z Drainage of Left Pleural Cavity with Drainage Device, Percutaneous Approach (ICD-10-PCS; principal; 2023-02-05)
DX: S27.0XXA Traumatic pneumothorax, initial encounter (principal); E44.0 Moderate protein-calorie malnutrition; S22.31XA Fracture of one rib, right side, initial encounter for closed fracture; G91.2 (Idiopathic) normal pressure hydrocephalus; Z68.1 Body mass index [BMI] 19.9 or less, adult; F02.84 Dementia in other diseases classified elsewhere, unspecified severity, with anxiety; F02.83 Dementia in other diseases classified elsewhere, unspecified severity, with mood disturbance; J98.11 Atelectasis; W06.XXXA Fall from bed, initial encounter; Y92.092 Bedroom in other non-institutional residence as the place of occurrence of the external cause; E08.22 Diabetes mellitus due to underlying condition with diabetic chronic kidney disease; J43.2 Centrilobular emphysema; G30.9 Alzheimer's disease, unspecified; K21.9 Gastro-esophageal reflux disease without esophagitis; N20.0 Calculus of kidney; K57.30 Diverticulosis of large intestine without perforation or abscess without bleeding; R00.1 Bradycardia, unspecified; M54.9 Dorsalgia, unspecified; E78.5 Hyperlipidemia, unspecified; Z86.16 Personal history of COVID-19; Z87.01 Personal history of pneumonia (recurrent); Z88.0 Allergy status to penicillin; Z87.891 Personal history of nicotine dependence; Z90.710 Acquired absence of both cervix and uterus; R09.02 Hypoxemia; N94.89 Other specified conditions associated with female genital organs and menstrual cycle
CPT/HCPCS: 36415; 70450; 71045; 71250; 72125; 72131; 83605; 83735; 84100; 84443; 84484; 85025; 87040; 93005; 94640; 94664; 94760; A4606; A4663; C1758; G0378; J3590; J7040